=== PATIENT | male | born 1980 | race Caucasian/White ===

== ENCOUNTER → 2021-02-07 | Day surgery (SDC) | payer OTHER ==
[~2021-02-07] MED LIST: ACETAMINOPHEN 500 MG TABLET PO ONE; CELE100C PO; DEXAMETHASONE SOD PHOS 20 MG/5 ML VIAL. ONE; DEXT10TA23 PO; GLYCOPYRROLATE 1 MG/5 ML VIAL. ONE; HYDR-2155 PO; IPRATRPIUM/ALBUTEROL 0.5/2.5MG 3 ML NEBU. NEB PRN; IV RINGERS SOLUTION,LACTATED 1,000 ML IV SCH; KETOROLAC 30 MG/ML VIAL. ONE; LIDOCAINE 1%/EPI 1:100,000 20 ML VIAL. ONE; LIDOCAINE 2% PF 5 ML VIAL. ONE; MELA3TAB43 PO; MIDAZOLAM HCL PF 2 MG/2 ML VIAL. IV ONE; MIDAZOLAM HCL PF 2 MG/2 ML VIAL. ONE; MULT-766 PO; NEOSTIGMINE 10 MG/10 ML VIAL. ONE; OMEP20CA16 PO; ONDANSETRON PF 4 MG/2 ML VIAL. IV PRN; ONDANSETRON PF 4 MG/2 ML VIAL. ONE; OXYC1TAB22 PO; PROPOFOL 10,000 MCG/ML (20ML) VIAL IV ONE; ROCURONIUM 50 MG/5 ML VIAL. ONE; SERT100T PO; SEVOFLURANE 61 TO 120 MINUTES. IH ONE; SUCCINYLCHOLINE 200 MG/10 ML VIAL. ONE; SUMA100T4 PO
[2021-02-07 13:07] VITALS: BP 115/74
--- NOTE | 2021-02-07 20:20 | OP ---
DATE OF SURGERY: 02/07/2021 PREOPERATIVE DIAGNOSIS: Chronic tonsillitis. POSTOPERATIVE DIAGNOSIS: Chronic tonsillitis. PROCEDURE PERFORMED: Tonsillectomy. INDICATIONS FOR PROCEDURE: Chronic tonsillar inflammation with formation of tonsillar cryptic debris. ANESTHESIA: General anesthetic. The blood loss was estimated at 30 mL DESCRIPTION OF PROCEDURE: The patient was placed on the operating room table in a supine position. He was given a general anesthetic. When his airway was safe and secure, the table was rotated 90 degrees. A mouth gag was then placed and the oral cavity was braced open. The tonsils observed were noted to be small, but containing cryptic debris upon examination. The left tonsil was approached first. It was grasped with an Allis clamp and retracted to a medial position to where a shallow incision was made with a #12 knife blade and then gentle dissection carried out using a Rico dissector. As bleeding was encountered, it was controlled with Coblation unit, which was then utilized to completely remove the tonsil from the tonsil fossa and control bleeding as the procedure progressed. The right tonsil was then approached in a similar fashion creating a shallow incision and gently dissecting it free from the tonsil fossa. Unusual bleeding was encountered on this side, but it was controlled safely with the use of the Coblator. Complete removal of both tonsils allowed inspection and confirmation. No further bleeding had occurred. The procedure was then completed. The patient was recovered from his anesthesia and taken to recovery room in stable condition. BAMBI DR: Anderson TID: [id number]
--- NOTE | 2021-02-11 17:16 | PATHOLOGY ---
[facility] Accession Number: [id number] . 01 Material submitted: . tonsil - BILATERAL TONSILS (GROSS ONLY). Modifiers: bilateral . 01 Clinical history: . EPISTAXIS, DECIATED SEPTUM TONSILLECTOMY . 02 Diagnosis: Bilateral palatine tonsils, tonsillectomy: - Chronic tonsillitis. (JPM/db; 02/11/2021) LBQ 02/11/2021 1533 Local . 02 Electronically signed: . Krish Garcia MD, Pathologist NPI- [id number] . 01 Gross description: . . Received in formalin labeled "Shazia, Juan Luis". The site is not specified on the container. Information from the requisition states the site as "bilateral tonsils". Received are 2 undesignated yellow lobulated pink-grimes tonsils. Tonsil #1 measures 2.5 x 1.5 x 1.5 cm. Tonsil #2 measures 2.0 x 1.2 1.2 cm. Sectioning of the bilateral tonsils reveal pink-grimes cut surfaces and no grossly apparent lesions. The specimen is representatively submitted in cassette A1 (tonsil #1) and A2 (tonsil #2).([facility]; 02/10/2021) [facility] 02/10/2021 1711 Local . 02 Pathologist provided ICD-10: J35.1 . 02 CPT . 630895 Specimen Comment: A courtesy copy of this report has been sent to [phone], [phone]- Specimen Comment: [phone] Specimen Comment: Report sent to Specimen Comment: A duplicate report has been generated due to demographic updates. Performed at: [address], [place], [place] [id number] MD Nadir Clark MD Phone: [phone] Performed at: [address] [id number] MD Krish Garcia MD Phone: [phone]
== END | disposition home or self-care (01) ==
LOC: SURG 09:09
PROVIDERS: ATTEND Otolaryngology
DX: J35.01 Chronic tonsillitis (principal); K21.9 Gastro-esophageal reflux disease without esophagitis; F32.9 Major depressive disorder, single episode, unspecified; F41.9 Anxiety disorder, unspecified; N18.2 Chronic kidney disease, stage 2 (mild); Z79.899 Other long term (current) drug therapy; Z72.89 Other problems related to lifestyle
CPT/HCPCS: 42826; 88304; J0330; J1100; J1885; J2001; J2250; J2405; J2704; J2710; J3010; J3490; J7120